=== PATIENT | female | born 1930 | race Caucasian/White ===

== ENCOUNTER 2020-06-22 18:25 | Observation (INO) ==
[2020-06-22 19:05] LABS: Basophils # 0.1 K/mcL (0.0-0.2); Basophils % 0.3 %; Eosinophils # 0.1 K/mcL (0.0-0.6); Eosinophils % 0.3 %; Hematocrit 33.9 % (35.3-44.9); Hemoglobin 10.5 g/dL (11.5-15.4); Immature Granulocytes % 4.7 % (0-4); Lymphocytes # 4.6 K/mcL (0.6-4.6); Lymphocytes % 21.7 %; Mean Corpuscular Hemoglobin 28.8 pg (28.0-33.3); Mean Corpuscular Volume 93.1 fL (83.0-100.0); Mean Platelet Volume 12.4 fL (9.4-12.4); Monocytes # 1.9 K/mcL (0.0-1.3); Monocytes % 9.1 %; Neutrophils # 13.6 K/mcL (1.6-8.9); Nucleated Red Blood Cells 1.2 /100 WBC (0); Platelet Count 103 K/mcL (140-400); Red Blood Count 3.64 M/mcL (3.82-4.97); Red Cell Distribution Width 15.3 % (11.5-14.5); Segmented Neutrophils % 63.9 %; White Blood Count 21.3 K/mcL (4.3-11.1)
[2020-06-22 19:31] LABS: Calcium 13.1 mg/dL (8.6-10.3); Potassium 4.2 mEq/L (3.5-5.1)
[2020-06-22] MEDS ORDERED: 0.9 % Sodium Chloride 1,000 ML IVC ONE ×2 (19:32→22:10)
[2020-06-22 20:03] LABS: Troponin I 0.04 ng/mL (< 0.04)
[2020-06-22 21:09] LABS: Bacteria,Urine Few per hpf (None-Few); Bilirubin,Urine Negative (Negative); Blood,Urine Negative (Negative); Clarity,Urine Clear (Clear); Color,Urine Yellow (Yellow); Glucose,Urine (UA) Normal (Normal); Hyaline Casts,Urine Many per lpf (None Seen); Ketones,Urine Negative (Negative); Leukocyte Esterase,Urine Negative (Negative); Mucus,Urine Few per lpf (None-Few); Nitrite,Urine Negative (Negative); PH,Urine 5.5 pH Units (5.0-8.0); Protein,Urine 50 mg/dL (Neg-Trace); RBC,Urine 0-3 per hpf (0-3); Specific Gravity,Urine 1.022 (1.010-1.025); Squamous Epithelial Cell,Urine Few per hpf (None-Few); Urobilinogen,Urine Normal (Normal)
[2020-06-22 22:00] LABS: Albumin 3.8 g/dL (3.5-5.7); Albumin/Globulin Ratio 1.2 (1.1-2.2); Bilirubin,Direct 0.1 mg/dL (0.0-0.2); Bilirubin,Indirect 0.4 mg/dL (0.0-1.0); Bilirubin,Total 0.5 mg/dL (0.3-1.0); Globulin 3.3 g/dL (2.4-3.5); Total Protein 7.1 g/dL (6.4-8.9)
[2020-06-22 22:46] LABS: VBG Ionized Calcium 1.51 mmol/L (1.15-1.35)
[2020-06-22] MEDS ORDERED: Naloxone 0.4 MG/ML INJ IVP PRN (23:34)
[2020-06-23 00:26] LABS: BUN/Creatinine Ratio 43 (6-26); Blood Urea Nitrogen 45 mg/dL (8-23); Calcium 11.8 mg/dL (8.6-10.3); Carbon Dioxide 28 mEq/L (23-29); Chloride 100 mEq/L (98-107); Glucose 126 mg/dL (70-105); Osmolality,Calculated 301 (280-300); Potassium 3.5 mEq/L (3.5-5.1); Sodium 139 mEq/L (136-145); Troponin I 0.03 ng/mL (< 0.04); eGFR For African Americans > 60 (> 60); eGFR For Non-African Americans 50 (> 60)
[2020-06-23 00:40] LABS: Thyroid Stimulating Hormone 1.259 mcIU/mL (0.340-5.600)
[2020-06-23] MEDS: Acetaminophen 325 MG TABLET PO PRN ×2 (01:47→20:20)
[2020-06-23] MEDS: 0.9 % Sodium Chloride 1,000 ML IVC SCH ×2 (01:47→10:10)
[2020-06-23 05:36] LABS: Basophils % 0.3 %
[2020-06-23 05:38] LABS: Eosinophils # 0.1 K/mcL (0.0-0.6); Eosinophils % 0.4 %; Hematocrit 27.5 % (35.3-44.9); Hemoglobin 8.4 g/dL (11.5-15.4); Immature Granulocytes % 4.3 % (0-4); Immature Platelets 9.5 % (1.1-6.1); Lymphocytes # 3.3 K/mcL (0.6-4.6); Lymphocytes % 20.6 %; Mean Corpuscular HGB Conc 30.5 g/dL (31.6-35.5); Mean Corpuscular Hemoglobin 28.9 pg (28.0-33.3); Mean Corpuscular Volume 94.5 fL (83.0-100.0); Mean Platelet Volume 12.6 fL (9.4-12.4); Monocytes # 1.9 K/mcL (0.0-1.3); Monocytes % 11.8 %; Neutrophils # 9.9 K/mcL (1.6-8.9); Nucleated Red Blood Cells 1.5 /100 WBC (0); Red Blood Count 2.91 M/mcL (3.82-4.97); Red Cell Distribution Width 15.4 % (11.5-14.5); Segmented Neutrophils % 62.6 %; White Blood Count 15.8 K/mcL (4.3-11.1)
[2020-06-23 05:40] LABS: Basophils # 0.1 K/mcL (0.0-0.2); Platelet Count 75 K/mcL (140-400)
[2020-06-23 05:58] LABS: Albumin 3.1 g/dL (3.5-5.7); Albumin/Globulin Ratio 1.2 (1.1-2.2); Bilirubin,Total 0.4 mg/dL (0.3-1.0); Calcium 11.7 mg/dL (8.6-10.3); Globulin 2.5 g/dL (2.4-3.5); Magnesium 1.7 mg/dL (1.6-2.6); Phosphorous 3.9 mg/dL (2.7-4.5); Potassium 3.8 mEq/L (3.5-5.1); Total Protein 5.6 g/dL (6.4-8.9)
[2020-06-23] MEDS ORDERED: *HR* OxyCODONE Immed Rel 5 MG TABLET PO PRN ×2 (07:26→16:51)
[2020-06-23 09:32] LABS: Hematocrit 28.4 % (35.3-44.9); Hemoglobin 8.7 g/dL (11.5-15.4)
[2020-06-23 09:51] LABS: % Iron Saturation 9 % (15-50); Iron 24 mcg/dL (50-170); Transferrin 193 mg/dL (203-362)
[2020-06-23 10:30] LABS: Folate > 22.3 ng/mL (3.0-16.0); Vitamin B12 > 1500 pg/mL (250-1100)
[2020-06-23] MEDS: dexAMETHasone 4 MG TABLET PO SCH ×2 (13:15→20:20)
[2020-06-23] MEDS ORDERED: *HR* Heparin 5,000 UNIT/ML VIAL SQ SCH (18:00)
[2020-06-23] MEDS: Mirtazapine 15 MG TABLET PO SCH (20:18)
[2020-06-23] MEDS: amLODIPine 5 MG TABLET PO SCH (20:20)
[2020-06-24 01:12] LABS: Hematocrit 27.7 % (35.3-44.9); Hemoglobin 8.6 g/dL (11.5-15.4); Immature Platelets 12.5 % (1.1-6.1); Mean Corpuscular Hemoglobin 29.3 pg (28.0-33.3); Mean Corpuscular Volume 94.2 fL (83.0-100.0); Mean Platelet Volume 12.9 fL (9.4-12.4); Red Blood Count 2.94 M/mcL (3.82-4.97); White Blood Count 17.8 K/mcL (4.3-11.1)
[2020-06-24 01:22] LABS: BUN/Creatinine Ratio 44 (6-26); Blood Urea Nitrogen 43 mg/dL (8-23); Calcium 11.2 mg/dL (8.6-10.3); Carbon Dioxide 28 mEq/L (23-29); Chloride 101 mEq/L (98-107); Glucose 193 mg/dL (70-105); Osmolality,Calculated 300 (280-300); Potassium 4.2 mEq/L (3.5-5.1); Sodium 137 mEq/L (136-145); eGFR For African Americans > 60 (> 60); eGFR For Non-African Americans 54 (> 60)
[2020-06-24] MEDS: dexAMETHasone 4 MG TABLET PO SCH ×2 (08:49→21:37)
[2020-06-24] MEDS: *HR* OxyCODONE Immed Rel 5 MG TABLET PO PRN (08:51)
[2020-06-24] MEDS: amLODIPine 5 MG TABLET PO SCH (21:37)
[2020-06-24] MEDS: Mirtazapine 15 MG TABLET PO SCH (21:37)
[2020-06-25] MEDS: dexAMETHasone 4 MG TABLET PO SCH ×2 (11:12→21:27)
[2020-06-25] MEDS: *HR* OxyCODONE Immed Rel 5 MG TABLET PO PRN (12:28)
[2020-06-25] MEDS: amLODIPine 5 MG TABLET PO SCH (21:27)
[2020-06-25] MEDS: Mirtazapine 15 MG TABLET PO SCH (21:27)
[2020-06-26] MEDS: *HR* OxyCODONE Immed Rel 5 MG TABLET PO PRN ×2 (00:54→15:02)
[2020-06-26] MEDS ORDERED: *HR* Metoprolol 5 MG/5 ML VIAL IVP ONE (02:37)
[2020-06-26 05:14] LABS: BUN/Creatinine Ratio 57 (6-26); Blood Urea Nitrogen 57 mg/dL (8-23); Calcium 11.6 mg/dL (8.6-10.3); Carbon Dioxide 30 mEq/L (23-29); Chloride 99 mEq/L (98-107); Glucose 182 mg/dL (70-105); Magnesium 1.9 mg/dL (1.6-2.6); Osmolality,Calculated 306 (280-300); Phosphorous 2.4 mg/dL (2.7-4.5); Potassium 4.5 mEq/L (3.5-5.1); Sodium 138 mEq/L (136-145); eGFR For African Americans > 60 (> 60); eGFR For Non-African Americans 52 (> 60)
[2020-06-26 05:19] LABS: Hemoglobin 9.8 g/dL (11.5-15.4); Mean Corpuscular Volume 94.2 fL (83.0-100.0)
[2020-06-26 05:20] LABS: Basophils # 0.4 K/mcL (0.0-0.2); Basophils % 1.1 %; Eosinophils % 0.1 %; Immature Granulocytes % 11.8 % (0-4); Immature Platelets 10.7 % (1.1-6.1); Lymphocytes # 4.5 K/mcL (0.6-4.6); Lymphocytes % 12.6 %; Mean Corpuscular HGB Conc 31.6 g/dL (31.6-35.5); Mean Corpuscular Hemoglobin 29.8 pg (28.0-33.3); Monocytes # 2.9 K/mcL (0.0-1.3); Monocytes % 8.3 %; Neutrophils # 23.3 K/mcL (1.6-8.9); Red Blood Count 3.29 M/mcL (3.82-4.97); Red Cell Distribution Width 15.4 % (11.5-14.5); Segmented Neutrophils % 66.1 %
[2020-06-26 05:31] LABS: Platelet Count 91 K/mcL (140-400); White Blood Count 35.3 K/mcL (4.3-11.1)
[2020-06-26] MEDS ORDERED: *HR* Enoxaparin 40 MG/0.4 ML SYRINGE SQ SCH (06:00)
[2020-06-26 07:03] LABS: Anisocytosis 1+ (Not Present); Platelet Estimate Decreased (Normal)
[2020-06-26] MEDS: dexAMETHasone 4 MG TABLET PO SCH (08:08)
[2020-06-26 17:43] VITALS: BP 164/72
== END 2020-06-26 19:36 ==
LOC: EMEROOARM 18:25 → 2NNU 18:25 → SUATTDRO 22:17 → 2NNU 22:45 → 3NENU 06-24 19:00
PROVIDERS: ADMIT Student in an Organized Health Care Education/Training Program; ATTEND Internal Medicine